=== PATIENT | female | born 1990 | race Two or more races ===

== ENCOUNTER → 2022-08-01 | Emergency (ER) | payer OTHER ==
[~2022-08-01] VITALS: Ht 152.4 cm; Wt 68.0 kg
[~2022-08-01] MED LIST: ATORVASTATIN CA40 MG PO; DICLOFENAC SODI75 MG PO; ELIQUIS5 MG PO; LABETALOL HCL100 MG PO; PAROXETINE HCL20 MG PO
== END | disposition home or self-care (01) ==
LOC: ER 19:15
DX: S69.82XA Other specified injuries of left wrist, hand and finger(s), initial encounter (principal); S59.802A Other specified injuries of left elbow, initial encounter; W19.XXXA Unspecified fall, initial encounter; Y93.9 Activity, unspecified; Y92.9 Unspecified place or not applicable; M12.542 Traumatic arthropathy, left hand; M12.522 Traumatic arthropathy, left elbow; I10 Essential (primary) hypertension; Z86.73 Personal history of transient ischemic attack (TIA), and cerebral infarction without residual deficits; Z88.2 Allergy status to sulfonamides